=== PATIENT | male | born 1960 | race Caucasian/White ===

== ENCOUNTER 2023-03-12 20:23 | Emergency (ER) | payer OTHER ==
[~2023-03-12] VITALS: Ht 175.3 cm; Wt 82.0 kg
[2023-03-12] MEDS ORDERED: IBUP-2030 MT (20:33)
[2023-03-12 20:37] VITALS: BP 158/92; PULSE 89; RESP 18; TEMP 97.8; O2SAT 99
== END 2023-03-12 20:46 | disposition home or self-care (01) ==
LOC: ER 20:23
DX: S39.012A Strain of muscle, fascia and tendon of lower back, initial encounter (principal); V89.2XXA Person injured in unspecified motor-vehicle accident, traffic, initial encounter; Y93.89 Activity, other specified; Y92.89 Other specified places as the place of occurrence of the external cause; Y99.8 Other external cause status
CPT/HCPCS: 99283